=== PATIENT | male | born 1980 | race Caucasian/White ===

== ENCOUNTER 2019-08-09 13:08 | Emergency (ER) | payer OTHER, SELFPAY ==
[2019-08-09 13:14] VITALS: BP 154/102; PULSE 80; RESP 15; TEMP 36.7; O2SAT 99; BMI 26.6
--- NOTE | 2019-08-09 15:00 | PC.NURSE ---
Pt was in the lobby. He had been making staff and other people in the lobby uncomfortable since he arrived. Staff at registration desk began to feel uncomfortable,called police to the ED lobby. Police arrived,one officer asked what I needed him to do. I told him that he was a patient in the ED waiting to be seen but had been making everyone uneasy in the lobby,if the police could just ask him to settle down while waiting. Police officers trespassed him. We told police after we were made aware that the patient was asked to leave by [employer] that he shouldn't have been asked to leave. We looked for him outside and were unable to find him.
--- NOTE | 2019-08-09 15:54 | PC.NURSE ---
Pt brought back to be seen by police
--- NOTE | 2019-08-09 16:03 | PC.NURSE ---
I asked Favian to not sit on the sink, offered the bed or chair. pt stated i'm over this, I'm leaving I pointed out the exit. the door had opened for someone else, pt walked up to the door and put his hand between the closed door and the closing door, left it in place to it became out in the door. the pt then raised his voice saying your not helping me i walked behind him and opened the door. the pt then yelled towards the waiting room you're pushing me i then said outside is to your left. pt walked away.
== END 2019-08-09 16:03 | disposition left against medical advice (07) ==
PROVIDERS: Emergency Provider Emergency Medicine
DX: M25.521 Pain in right elbow (principal)
CPT/HCPCS: 99282

== ENCOUNTER 2019-10-28 14:39 | Emergency (ER) | payer SELFPAY ==
--- NOTE | 2019-10-28 14:43 | PC.NURSE ---
Went to get pt for triage, pt refusing to sign consent and asked if we could still treat him. Asked pt to have a seat in the lobby so I could speak with Dr. Curtis. Went back to waiting room to get pt and registration stated that he went to a different part of the hospital to get his belongings. Asked to be called when patient returns. Dr. Curtis and Nika clinical abstractor aware. Pt appeared in NAD.
--- NOTE | 2019-10-28 14:53 | PC.NURSE ---
Terrell informed this RN that pt is wanting to read consent form in the main lobby prior to being seen. [employer] is aware of the situation.
[2019-10-28 15:00] VITALS: BP 157/90; PULSE 83; RESP 18; TEMP 37.4; O2SAT 97; BMI 25.0
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
== END 2019-10-28 15:46 | disposition home or self-care (01) ==
PROVIDERS: Emergency Provider Emergency Medicine
DX: S09.8XXA Other specified injuries of head, initial encounter (principal); W01.198A Fall on same level from slipping, tripping and stumbling with subsequent striking against other object, initial encounter; Y93.02 Activity, running
CPT/HCPCS: 99281; 99282

== ENCOUNTER 2019-12-12 08:43 | Emergency (ER) | payer SELFPAY ==
[2019-12-12 08:45] VITALS: BP 144/82; PULSE 62; RESP 20; TEMP 36.7; O2SAT 98
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
== END 2019-12-12 09:17 | disposition left against medical advice (07) ==
PROVIDERS: Emergency Provider Emergency Medicine
CPT/HCPCS: 99281

== ENCOUNTER 2020-03-31 17:39 | Emergency (ER) | payer SELFPAY ==
[2020-03-31 17:42] VITALS: BP 164/95; PULSE 100; RESP 16; TEMP 36.8; O2SAT 97; BMI 25.0
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
[2020-03-31 18:16] LABS: Add Manual Diff / Slide Review NO; Basophils Absolute Auto 100 /uL (0-100); Basophils Percent Auto 0.9 % (0-2); Eosinophils Absolute Auto 300 /uL (0-450); Eosinophils Percent Auto 2.9 % (2-4); Hematocrit 45.4 % (41-53); Hemoglobin 16.3 g/dL (13.5-17.5); Lymphocytes Absolute Auto 2600 /uL (1100-4500); Lymphocytes Percent Auto 28.4 % (25-40); Mean Corpuscular HGB Conc 35.9 % (30-36); Mean Corpuscular Hemoglobin 33.1 PG (26-34); Mean Corpuscular Volume 92.2 fL (80-100); Monocytes Absolute Auto 800 /uL (0-900); Monocytes Percent Auto 8.5 % (3-14); Neutrophils Absolute Auto 5400 /uL (1500-7000); Neutrophils Percent Auto 59.3 % (50-75); Platelet Count 306 X10^3/uL (150-400); Red Blood Cell Count 4.92 X10^6/uL (4.5-5.9); Red Cell Distribution Width 13.3 % (11.6-14.8); White Blood Cell Count 9.1 X10^3/uL (4.5-11.0)
--- NOTE | 2020-03-31 18:22 | PC.NURSE ---
Pt ran out of the ED, was brought back and then when staff let go of her arm she ran out again. She was not verbally re-directable. I walked pt back to ED in controlled walk w/ hands on. Pt then placed in room 13 with door closed. Provider there and completed face to face. pt stating my sister- we need to hug this out, there is so much darkness here! It is not going away! Please my sister, I need to stay quiet and pray to the Gods that the darkness will go away. Pt continues to verbalize to beings not in room. Does not make eye contact. Belongings are secured. 1:[address] w/ eyes on.
[2020-03-31 18:24] LABS: Alanine Aminotransferase 20 IU/L (<50); Albumin 4.8 g/dL (3.5-5.0); Albumin Globulin Ratio 1.5 (1.0-2.8); Alkaline Phosphatase 79 U/L (38-126); Aspartate Aminotransferase 33 IU/L (17-59); BUN Creatinine Ratio 26.4 (6-22); Bilirubin Total 1.5 mg/dL (0.2-1.3); Blood Urea Nitrogen 23 mg/dL (9-20); Calcium 9.5 mg/dL (8.4-10.2); Carbon Dioxide 26 mmol/L (22-32); Chloride 102 mmol/L (98-107); Estimated Glomerular Filt Rate > 60.0 mL/min (>60); Ethanol (ETOH) < 10 mg/dL; Globulin 3.1 g/dL (1.7-4.1); Glucose 129 mg/dL (70-100); HEMOLYSIS 16 (0-50); Potassium 4.2 mmol/L (3.4-5.1); Sodium 139 mmol/L (137-145); Total Protein 7.9 g/dL (6.3-8.2)
[2020-03-31 18:29] LABS: UR Morphine/Opiate cutoff 300 Negative (Negative); Ur Creatinine Normal (Normal); Ur Specific Gravity Normal (Normal); Urine Amphetamines Negative (Negative); Urine Barbiturates Negative (Negative); Urine Benzodiazepines Negative (Negative); Urine Cocaine Negative (Negative); Urine MDMA Negative (Negative); Urine Methadone Negative (Negative); Urine Methamphetamines Negative (Negative); Urine Oxycodone Negative (Negative); Urine Phencyclidine Negative (Negative); Urine Tetrahydrocannabinol Positive (Negative); Urine Tricyclic Antidepressant Negative (Negative); Urine pH Normal (Normal)
--- NOTE | 2020-03-31 18:35 | ED_ITS ---
HPI - Psych <Rancho Dunne DO - Last Filed: 04/01/20 18:45> General Chief Complaint: Psychiatric Symptoms Stated Complaint: JORGE Time Seen by Provider: 03/31/20 18:05 Source: patient and police Limitations: no limitations History of Present Illness HPI Narrative: 31-year-old male nonsmoker with history of marijuana use presents by [facility] please for evaluation of psychotic and possible suicidal behavior. The patient is known to police for having psychiatric problems, anger outbursts and other interactions. PD states the of seem a few times in the past few days and that he is ramping up. Today he jumped out in front of the police car while traveling down [address] and apparently stairs down the police officer crime prevention the finely. He has filled out and JORGE, please see his paperwork for details. Patient denies any suicidal or homicidal ideations but does state that the frequent interactions he has had with the police lately are, in his opinion, secondary to various coronavirus conspiracies. When asked about this, and attempt to gain clarification he became quickly angered. Patient denies any at tempt at hurting himself. He states the police are making it up and he is incomplete disagreement with their statement. complaint: other Onset (ago): day(s) Duration: intermittent History of same: Yes Relieving factors: none Associated psychiatric symptoms: none Associated symptoms: denies other symptoms Treatments prior to arrival: placed on mental health hold Related Data Home Medications Medication Instructions Recorded Confirmed No Known Home Medications 03/31/20 03/31/20 Allergies Allergy/AdvReac Type Severity Reaction Status Date / Time No Known Drug Allergies Allergy Verified 03/31/20 17:56 Review of Systems <Rancho Dunne DO - Last Filed: 04/01/20 18:45> Constitutional Constitutional: Denies chills, Denies fatigue, Denies fever(s), Denies frequent falls, Denies lethargy and Denies weakness Eyes Eyes: Denies change in vision, Denies eye discharge, Denies irritation and Denies loss of vision ENT Ears, Nose, Mouth, and Throat: Denies change in voice, Denies dizziness, Denies neck pain, Denies sore throat and Denies throat swelling Cardiovascular Cardiovascular: Denies chest pain, Denies irregular heart rhythm, Denies lightheadedness, Denies palpitations, Denies dyspnea, Denies dyspnea on exertion and Denies orthopnea Respiratory Respiratory: Denies cough, Denies dyspnea, Denies dyspnea on exertion and Denies wheezing Gastrointestinal Gastrointestinal: Denies abdominal pain, Denies change in bowel habits, Denies diarrhea, Denies nausea and Denies vomiting Genitourinary Genitourinary: Denies hematuria, Denies flank pain, Denies urinary incontinence and Denies urinary urgency Musculoskeletal Musculoskeletal: Denies back pain, Denies muscle weakness, Denies neck pain, Denies numbness and Denies tingling Integumentary/Breasts Skin/Breast: Denies pruritus, Denies erythema, Denies rash and Denies wounds Neurologic Neurologic: Denies behavioral changes, Denies confusion, Denies dizziness, Denies frequent falls, Denies loss of vision, Denies numbness, Denies tingling and Denies weakness Psychiatric Psychiatric: Denies anxiety, Denies behavioral changes, Denies confusion, Denies depression, Denies homicidal ideation and Denies suicidal ideation Endocrine Endocrine: Denies fatigue, Denies flushing and Denies palpitations Hematologic/Lymphatic Hematologic/Lymphatic: Denies easy bruising Allergic/Immunologic Allergic/Immunologic: Denies urticaria, Denies throat swelling and Denies wheezing Patient History <Rancho Dunne DO - Last Filed: 04/01/20 18:45> Medical History Patient denies significant medical history (Acute) Social History Smoking Status: Unknown if ever smoked Smoking Status: Unknown if ever smoked alcohol intake frequency: holidays/special occasions only Substance Use Type: marijuana Exam <Rancho Dunne DO - Last Filed: 04/01/20 18:45> Narrative Exam Narrative: GENERAL: [39] year old patient appears stated age. Well- nourished, well-developed patient, in mild distress. Clearly upset that he is here HEAD: Atraumatic. Normocephalic. EYES: Pupils equal round and reactive. Extraocular motions intact. No scleral icterus. No injection or drainage. ENT: Nose without bleeding, purulent drainage. Throat without erythema, tonsillar hypertrophy or exudate. Airway patent. NECK: Trachea midline. Non tender CARDIOVASCULAR: Regular rate and rhythm without murmurs, gallops, or rubs. RESPIRATORY: Clear to auscultation. Breath sounds equal bilaterally. No wheezes, rales, or rhonchi. GASTROINTESTINAL: Abdomen soft, non-tender, nondistended. EXTREMITIES: No edema or joint tenderness. BACK: Nontender without deformity or crepitance. No flank tenderness. NEURO: AOx3. Speech and behavior quicly becomes aggressive with basic questioning SKIN: No rash or erythema of visible areas Initial Vital Signs Initial Vital Signs: Vital Signs Temperature 98.3 F 03/31/20 17:42 Pulse Rate 100 H 03/31/20 17:42 Respiratory Rate 16 03/31/20 17:42 Blood Pressure 164/95 H 03/31/20 17:42 Pulse Oximetry 97 03/31/20 17:42 <Gisselle Mccabe MD - Last Filed: 04/01/20 06:16> Initial Vital Signs Initial Vital Signs: Vital Signs Temperature 98.3 F 03/31/20 17:42 Pulse Rate 100 H 03/31/20 17:42 Respiratory Rate 16 03/31/20 17:42 Blood Pressure 164/95 H 03/31/20 17:42 Pulse Oximetry 97 03/31/20 17:42 Course <Rancho Dunne DO - Last Filed: 04/01/20 18:45> Course Course Narrative: patient medical clearance labs are largely back and without significant abnormalities. Given his paranoid and (at times) risky behavior, which put him and others at risk he will be visited by DCR as he has no follow up, is homeless, and will likely need stabilization of his condition. Patient signed out to Dr. Mccabe for final disposition. Orders Ordered: ED Orders 03/31/20 17:49 EKG-12 Lead Stat 03/31/20 18:00 Complete Blood Count AUTO DIFF Stat Comprehensive Metabolic Panel Stat Ethanol (ETOH) Stat Thyroid Stimulating Hormone Stat 03/31/20 18:05 Urine Drug Screen, Rapid Stat Urine Microscopic Stat Vital Signs Vital signs: Vital Signs - 8 hr 03/31/20 17:42 Temperature 98.3 F Pulse Rate 100 H Respiratory Rate 16 Blood Pressure 164/95 H Pulse Oximetry 97 <Gisselle Mccabe MD - Last Filed: 04/01/20 06:16> Orders Ordered: ED Orders 03/31/20 17:49 EKG-12 Lead Stat 03/31/20 18:00 Complete Blood Count AUTO DIFF Stat Comprehensive Metabolic Panel Stat Ethanol (ETOH) Stat Thyroid Stimulating Hormone Stat 03/31/20 18:05 Urine Drug Screen, Rapid Stat Urine Microscopic Stat Vital Signs Vital signs: Vital Signs - 8 hr 03/31/20 17:42 Temperature 98.3 F Pulse Rate 100 H Respiratory Rate 16 Blood Pressure 164/95 H Pulse Oximetry 97 MDM - Psych <Rancho Dunne DO - Last Filed: 04/01/20 18:45> Lab Data Result diagrams: 03/31/20 18:00 03/31/20 18:00 Labs: Lab Results 03/31/20 03/31/20 03/31/20 Range/Units 18:00 18:00 18:00 WBC 9.1 (4.5-11.0) X10^3/uL RBC 4.92 (4.5-5.9) X10^6/uL Hgb 16.3 (13.5-17.5) g/dL Hct 45.4 (41-53) % MCV 92.2 (80-100) fL MCH 33.1 (26-34) PG MCHC 35.9 (30-36) % RDW 13.3 (11.6-14.8) % Plt Count 306 (150-400) X10^3/uL Neut % (Auto) 59.3 (50-75) % Lymph % (Auto) 28.4 (25-40) % [place] % (Auto) 8.5 (3-14) % Eos % (Auto) 2.9 (2-4) % Baso % (Auto) 0.9 (0-2) % Neut # (Auto) 5400 (2948-3826) /uL Lymph # (Auto) 2600 (1859-5179) /uL [place] # (Auto) 800 (0-900) /uL Eos # (Auto) 300 (0-450) /uL Baso # (Auto) 100 (0-100) /uL Sodium 139 (137-145) mmol/L Potassium 4.2 (3.4-5.1) mmol/L Chloride 102 (98-107) mmol/L Carbon Dioxide 26 (22-32) mmol/L BUN 23 H (9-20) mg/dL Creatinine 0.87 (0.66-1.25) mg/dL Estimated GFR > 60.0 (>60) mL/min BUN/Creatinine Ratio 26.4 H (6-22) Glucose 129 H (70-100) mg/dL Calcium 9.5 (8.4-10.2) mg/dL Total Bilirubin 1.5 H (0.2-1.3) mg/dL AST 33 (17-59) IU/L ALT 20 (<50) IU/L Alkaline Phosphatase 79 (38-126) U/L Total Protein 7.9 (6.3-8.2) g/dL Albumin 4.8 (3.5-5.0) g/dL Globulin 3.1 (1.7-4.1) g/dL Albumin/Globulin Ratio 1.5 (1.0-2.8) TSH 1.41 (0.47-4.68) uIU/mL Urine RBC (0-5/HPF) Urine WBC (0-5/HPF) Ur Squamous Epith Cells (0-5/HPF) Urine Bacteria (None) Urine Mucus (Negative) Ur Culture Indicated? U Opiates 300ng/mL cut (Negative) Ur Oxycodone Screen (Negative) Urine Methadone Screen (Negative) Ur Barbiturates Screen (Negative) U Tricyclic Antidepress (Negative) Ur Phencyclidine Scrn (Negative) Ur Amphetamines Screen (Negative) U Methamphetamines Scrn (Negative) Ur MDMA Scrn (Ecstasy) (Negative) U Benzodiazepines Scrn (Negative) Urine Cocaine Screen (Negative) U Marijuana (THC) Screen (Negative) Ethyl Alcohol < 10 ( - 10) mg/dL 03/31/20 03/31/20 Range/Units 18:05 18:05 WBC (4.5-11.0) X10^3/uL RBC (4.5-5.9) X10^6/uL Hgb (13.5-17.5) g/dL Hct (41-53) % MCV (80-100) fL MCH (26-34) PG MCHC (30-36) % RDW (11.6-14.8) % Plt Count (150-400) X10^3/uL Neut % (Auto) (50-75) % Lymph % (Auto) (25-40) % [place] % (Auto) (3-14) % Eos % (Auto) (2-4) % Baso % (Auto) (0-2) % Neut # (Auto) (2110-4064) /uL Lymph # (Auto) (5590-3832) /uL [place] # (Auto) (0-900) /uL Eos # (Auto) (0-450) /uL Baso # (Auto) (0-100) /uL Sodium (137-145) mmol/L Potassium (3.4-5.1) mmol/L Chloride (98-107) mmol/L Carbon Dioxide (22-32) mmol/L BUN (9-20) mg/dL Creatinine (0.66-1.25) mg/dL Estimated GFR (>60) mL/min BUN/Creatinine Ratio (6-22) Glucose (70-100) mg/dL Calcium (8.4-10.2) mg/dL Total Bilirubin (0.2-1.3) mg/dL AST (17-59) IU/L ALT (<50) IU/L Alkaline Phosphatase (38-126) U/L Total Protein (6.3-8.2) g/dL Albumin (3.5-5.0) g/dL Globulin (1.7-4.1) g/dL Albumin/Globulin Ratio (1.0-2.8) TSH (0.47-4.68) uIU/mL Urine RBC None seen (0-5/HPF) Urine WBC 0-1/hpf (0-5/HPF) Ur Squamous Epith Cells 0-1 /hpf (0-5/HPF) Urine Bacteria None seen (None) Urine Mucus 2+ H (Negative) Ur Culture Indicated? Cult not indicated U Opiates 300ng/mL cut Negative (Negative) Ur Oxycodone Screen Negative (Negative) Urine Methadone Screen Negative (Negative) Ur Barbiturates Screen Negative (Negative) U Tricyclic Antidepress Negative (Negative) Ur Phencyclidine Scrn Negative (Negative) Ur Amphetamines Screen Negative (Negative) U Methamphetamines Scrn Negative (Negative) Ur MDMA Scrn (Ecstasy) Negative (Negative) U Benzodiazepines Scrn Negative (Negative) Urine Cocaine Screen Negative (Negative) U Marijuana (THC) Screen Positive H (Negative) Ethyl Alcohol ( - 10) mg/dL Urine Dip Bedside Urine Glucose Negative Bedside Urine Bilirubin ++ 2 Bedside Urine Ketone ++ 40 Urine Specific [place] 1.025 Bedside Urine Occult Blood - Negative Bedside Urine pH 6.0 Bedside Urine Protein - Negative Bedside Urine Urobilinogen - Negative Bedside Urine Nitrite - Negative Bedside Urine Leukocytes +/- 15 Esterase <Gisselle Mccabe MD - Last Filed: 04/01/20 06:16> Medical Records Attestation: I reviewed the patient's medical records. Lab Data Attestation: I reviewed the patient's lab results. Labs: Lab Results 03/31/20 03/31/20 03/31/20 Range/Units 18:00 18:00 18:00 WBC 9.1 (4.5-11.0) X10^3/uL RBC 4.92 (4.5-5.9) X10^6/uL Hgb 16.3 (13.5-17.5) g/dL Hct 45.4 (41-53) % MCV 92.2 (80-100) fL MCH 33.1 (26-34) PG MCHC 35.9 (30-36) % RDW 13.3 (11.6-14.8) % Plt Count 306 (150-400) X10^3/uL Neut % (Auto) 59.3 (50-75) % Lymph % (Auto) 28.4 (25-40) % [place] % (Auto) 8.5 (3-14) % Eos % (Auto) 2.9 (2-4) % Baso % (Auto) 0.9 (0-2) % Neut # (Auto) 5400 (1848-8779) /uL Lymph # (Auto) 2600 (3429-2671) /uL [place] # (Auto) 800 (0-900) /uL Eos # (Auto) 300 (0-450) /uL Baso # (Auto) 100 (0-100) /uL Sodium 139 (137-145) mmol/L Potassium 4.2 (3.4-5.1) mmol/L Chloride 102 (98-107) mmol/L Carbon Dioxide 26 (22-32) mmol/L BUN 23 H (9-20) mg/dL Creatinine 0.87 (0.66-1.25) mg/dL Estimated GFR > 60.0 (>60) mL/min BUN/Creatinine Ratio 26.4 H (6-22) Glucose 129 H (70-100) mg/dL Calcium 9.5 (8.4-10.2) mg/dL Total Bilirubin 1.5 H (0.2-1.3) mg/dL AST 33 (17-59) IU/L ALT 20 (<50) IU/L Alkaline Phosphatase 79 (38-126) U/L Total Protein 7.9 (6.3-8.2) g/dL Albumin 4.8 (3.5-5.0) g/dL Globulin 3.1 (1.7-4.1) g/dL Albumin/Globulin Ratio 1.5 (1.0-2.8) TSH 1.41 (0.47-4.68) uIU/mL Urine RBC (0-5/HPF) Urine WBC (0-5/HPF) Ur Squamous Epith Cells (0-5/HPF) Urine Bacteria (None) Urine Mucus (Negative) Ur Culture Indicated? U Opiates 300ng/mL cut (Negative) Ur Oxycodone Screen (Negative) Urine Methadone Screen (Negative) Ur Barbiturates Screen (Negative) U Tricyclic Antidepress (Negative) Ur Phencyclidine Scrn (Negative) Ur Amphetamines Screen (Negative) U Methamphetamines Scrn (Negative) Ur MDMA Scrn (Ecstasy) (Negative) U Benzodiazepines Scrn (Negative) Urine Cocaine Screen (Negative) U Marijuana (THC) Screen (Negative) Ethyl Alcohol < 10 ( - 10) mg/dL 03/31/20 03/31/20 Range/Units 18:05 18:05 WBC (4.5-11.0) X10^3/uL RBC (4.5-5.9) X10^6/uL Hgb (13.5-17.5) g/dL Hct (41-53) % MCV (80-100) fL MCH (26-34) PG MCHC (30-36) % RDW (11.6-14.8) % Plt Count (150-400) X10^3/uL Neut % (Auto) (50-75) % Lymph % (Auto) (25-40) % [place] % (Auto) (3-14) % Eos % (Auto) (2-4) % Baso % (Auto) (0-2) % Neut # (Auto) (2893-1918) /uL Lymph # (Auto) (5215-6179) /uL [place] # (Auto) (0-900) /uL Eos # (Auto) (0-450) /uL Baso # (Auto) (0-100) /uL Sodium (137-145) mmol/L Potassium (3.4-5.1) mmol/L Chloride (98-107) mmol/L Carbon Dioxide (22-32) mmol/L BUN (9-20) mg/dL Creatinine (0.66-1.25) mg/dL Estimated GFR (>60) mL/min BUN/Creatinine Ratio (6-22) Glucose (70-100) mg/dL Calcium (8.4-10.2) mg/dL Total Bilirubin (0.2-1.3) mg/dL AST (17-59) IU/L ALT (<50) IU/L Alkaline Phosphatase (38-126) U/L Total Protein (6.3-8.2) g/dL Albumin (3.5-5.0) g/dL Globulin (1.7-4.1) g/dL Albumin/Globulin Ratio (1.0-2.8) TSH (0.47-4.68) uIU/mL Urine RBC None seen (0-5/HPF) Urine WBC 0-1/hpf (0-5/HPF) Ur Squamous Epith Cells 0-1 /hpf (0-5/HPF) Urine Bacteria None seen (None) Urine Mucus 2+ H (Negative) Ur Culture Indicated? Cult not indicated U Opiates 300ng/mL cut Negative (Negative) Ur Oxycodone Screen Negative (Negative) Urine Methadone Screen Negative (Negative) Ur Barbiturates Screen Negative (Negative) U Tricyclic Antidepress Negative (Negative) Ur Phencyclidine Scrn Negative (Negative) Ur Amphetamines Screen Negative (Negative) U Methamphetamines Scrn Negative (Negative) Ur MDMA Scrn (Ecstasy) Negative (Negative) U Benzodiazepines Scrn Negative (Negative) Urine Cocaine Screen Negative (Negative) U Marijuana (THC) Screen Positive H (Negative) Ethyl Alcohol ( - 10) mg/dL Urine Dip Bedside Urine Glucose Negative Bedside Urine Bilirubin ++ 2 Bedside Urine Ketone ++ 40 Urine Specific [place] 1.025 Bedside Urine Occult Blood - Negative Bedside Urine pH 6.0 Bedside Urine Protein - Negative Bedside Urine Urobilinogen - Negative Bedside Urine Nitrite - Negative Bedside Urine Leukocytes +/- 15 Esterase MDM Narrative Medical decision making narrative: 39-year-old gentleman brought in by police after jumping in front of the marked patrol car. This incident today is the 3rd contact with law enforcement with inappropriately aggressive behavior toward other individuals in an attempt to elicit of eyelid response. Patient states that he is not suicidal. On initial exam he is inappropriately intense with stair and nonverbal behavior that makes staff uncomfortable. Initially attempted to leave and we asked him to stay until he has been further evaluated by mental health professional. He has been moved to room 13 and there is a one-to-one sitter at this time. If he does make an attempt to leave then he will be placed in to locked seclusion. He is becoming increasingly paranoid and has poor insight into overall events. Speech is slowed and episodes of poor fluency that suggest he perhaps is responding to internal stimuli even though he denies any auditory or visual hallucinations. He is currently medically clear and urinalysis shows only marijuana. Will ask for DCR eval to help with safe disposition. Initial concern is for increasing paranoia, behavior that indicates he is trying to cause harm to be done to himself and concerns for increasing psychosis. 1105pm increasing agitation and aggressive behavior. Waiting for DCR to return calls. Reluctant to sedate prior to DCR discussion. May need to shut door for staff and patient safety if behavior continues to escalate 1134pm increased aggressive behavior. The door is closed to room 13. Phone call to DCR simultaneously. He has reviewed records and will be talking with the patient be assumed right now. Face to face evaluation note for violent restraint/seclusion Date:03/31/2020 Time:1136pm Immediate situation: has psychomotor agitation Patient became physically aggressive with others Reaction to alternate interventions: Patient failed to respond to verbal redirection Patient became physically aggressive Medical and behavioral condition was evaluated and included a review of: Recent interventions At this time the: Patient threatened staff patient has poor impulse control and impaired judgment Medical indication for restraint/seclusion After DCR evaluation, patient is not felt to be attainable. He is released to his own recognizance. Discharge Plan Departure Patient Disposition: Home Clinical Impression: Acute situational disturbance, Agitation Discharge Date/Time: 04/01/20 00:26 Instructions: DI for Psychosis Activity Restrictions/Additional Instructions: You were evaluated in the emergency room tonight because please for concerned after you jumped in front of their car and there were 2 episodes yesterday where you seem to be inviting aggression from other people with your behaviors. Blood work was done and you were found to be medically stable with no acute issues that needed to be addressed. You spoke with our designated mental health professional this evening via telemedicine. He was concerned with your behavior however you do seem to have enough inside and rationale of the at this time that he did not feel that hospitalization was required nor appropriate. If you feel like you are getting worse, if you feel like you need to hurt herself or hurt other people, if your hearing voices or seeing things that other people are not seeing you are welcome to return to the emergency room and we will help in any way that we can. I hope you have a quiet remainder of your evening Prescriptions: No Action No Known Home Medications RF: 0
[2020-03-31 18:38] LABS: Bacteria Urine None Seen; RBC Urine None Seen (0-5/HPF)
--- NOTE | 2020-03-31 18:46 | PC.NURSE ---
LATE NOTE: 1829: Pt was requesting something to read while he waited. I gave him a magazine and a warm blanket. Pt expressing no concerns at this time.
[2020-03-31 18:49] LABS: Culture Indicated Urine Cult Not Indicated; Mucus Urine 2+ (Negative); Squamous Epithelial Cell Urine 0-1 /HPF (0-5/HPF); WBC Urine 0-1/HPF (0-5/HPF)
[2020-03-31 18:59] LABS: Thyroid Stimulating Hormone 1.41 uIU/mL (0.47-4.68)
--- NOTE | 2020-03-31 19:15 | PC.NURSE ---
Pt becoming agitated about having to wait.
--- NOTE | 2020-03-31 19:39 | PC.NURSE ---
Pt complained that nurse smelled of alcohol when she came to speak with him-- I acknowledged the severity of his complaint and educated him that, due to shortage of regular supplies, we are using alcohol-based hand sliver former from a local distillery that has a strong scent. He said, I am a recovering alcoholic, I know the smell. Pt then complained that he had been served sandwiches. He showed me the wrappers which were labeled EXP 04/02. Pt offered another snack, and drink. Declined comfort measures. Pt updated to plan of care. Pt is sitting up in bed, making direct eye contact.
--- NOTE | 2020-03-31 19:53 | PC.NURSE ---
pt given deodorant and toothpaste
--- NOTE | 2020-03-31 20:07 | PC.NURSE ---
Pt wondering whether or not he is going to get to see the results of his blood test, and is requesting a copy of all of the tests done during his visit. Pt then inquired about if he had an EKG done and what the purpose of the EKG is. Pt asked if an EKG is performed if the doctor is too stupid to understand what they're hearing when using a stethoscope. I informed the pt on what the purpose of an EKG is and that the doctor will be in to discuss his blood results with him as soon as she can. The pt is now sitting on the gurney with arms behind his head
--- NOTE | 2020-03-31 20:36 | PC.NURSE ---
Pt is agitated about waiting for test results but is talkative.
--- NOTE | 2020-03-31 21:03 | PC.NURSE ---
Pt is blaming nurse of smelling like alcohol and requested a different nurse,( it's her hand mold builder) he has requested the sitter as a witness to his conversation with the nurse, she has stated she will address the request. His mood from one minute to the next is cordial to confrontational. He is becoming quite agitated about not speaking with the doctor.
--- NOTE | 2020-03-31 21:43 | PC.NURSE ---
Pt requested to .use his phone the nurse obliged pt refused to give back keys and phone and became confrontational. Police were called in to assist with Pt while he is being moved from Rm. 12 to Rm 13 and remove all of the Pts belongings
--- NOTE | 2020-03-31 21:46 | PC.NURSE ---
Pt speaking with Police
--- NOTE | 2020-03-31 21:50 | PC.NURSE ---
patient moved from room 12 to room 13. patient placed in paper scrubs and his belongings were placed in the locked cabinet with proper labels.
--- NOTE | 2020-03-31 22:01 | PC.NURSE ---
Police are still here while Pt speaks with the Dr. Pt has been informed that he will be speaking with DCR via Video chat. Pt is currently being cooperative. eating his food off the floor
--- NOTE | 2020-03-31 22:30 | PC.NURSE ---
Pt having alot of complaints about everything and why he is being held here. He is standing in the doorway with constant conversation trying to be confrontational. demeanor goes from ok to angry within minutes
--- NOTE | 2020-03-31 22:50 | PC.NURSE ---
PT requesting chair. Dr Mccabe said no to chair. Pt then said I guess I'll do a headstand and proceeded to do a handstand in the door way. I told the pt that I would prefer that he not do that because he could injury himself and he responded with you sure?
--- NOTE | 2020-03-31 22:53 | PC.NURSE ---
Pt asking what the definition of a hostage is. I responded that I did not know and he then asked if I could look it up. He then said what if my family is looking for me because I didn't return home tonight? He then is continuing to ask questions about what we think our(hospital staff) family would do if we didn't come home at night.
--- NOTE | 2020-03-31 23:05 | PC.NURSE ---
miah finished with Pt watch handing off to BENNIE Gilman
--- NOTE | 2020-03-31 23:20 | PC.NURSE ---
patient requesting toothpaste and toothbrush so that he can brush his teeth and go to sleep. Patient called me a piece of filth and that I am not professional.
--- NOTE | 2020-03-31 23:25 | PC.NURSE ---
patient given a toothbrush and toothpaste so that he can brush his teeth.
--- NOTE | 2020-03-31 23:34 | PC.NURSE ---
Pt at door, speaking in loud voice, I am a hostage! Non redirectable. Pt threw his toothbrush and toothpaste on the floor. Pt instructed that it is time to lie down and go to sleep, pt continued to argue threateningly at doorway. Door closed for safety and to decrease stimulation. Pt asking for lights dimmed--and became irate when we adjusted the lighting to be able to see him. He came to the door, yelled at me through the window, If you mess with me, you will have a problem! Then he hit the glass window of the door. Pt is now in Zoom meeting with GENIA Porras on tablet.
--- NOTE | 2020-03-31 23:38 | PC.NURSE ---
patient punched door and asking for the lights to be turned off. patient told that we need to have some light on so that we can see him.
== END 2020-04-01 00:26 | disposition home or self-care (01) ==
PROVIDERS: Emergency Medicine; Emergency Provider Emergency Medicine
DX: F43.0 Acute stress reaction (principal); R45.1 Restlessness and agitation; R03.0 Elevated blood-pressure reading, without diagnosis of hypertension
CPT/HCPCS: 36415; 80053; 80305; 80320; 81003; 81015; 84443; 85025; 93005; 93010; 99284; 99285

== ENCOUNTER 2020-04-28 14:07 | Emergency (ER) | payer SELFPAY ==
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
== END 2020-04-28 14:30 | disposition left against medical advice (07) ==
PROVIDERS: Emergency Provider Emergency Medicine
CPT/HCPCS: 99281